=== PATIENT | male | born 1980 | race Two or more races ===

== ENCOUNTER 2017-06-11 03:38 | Emergency (ER) | payer OTHER ==
[~2017-06-11] VITALS: Ht 175.3 cm; Wt 86.2 kg
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
[2017-06-11 04:15] LABS: HEMATOCRIT 45.2 % (39.0-53.0); HEMOGLOBIN 15.2 g/dL (13.0-17.5); MEAN CORPUSCULAR HEMOGLOBIN 33 pg (25-35); MEAN CORPUSCULAR VOLUME 97 fL (79-100); RED BLOOD COUNT 4.65 x10^6/uL (4.30-5.70); WHITE BLOOD COUNT 6.6 x10^3/uL (4.0-11.0)
[2017-06-11] MEDS ORDERED: CONTRAST GIVEN MC PRN (04:15)
[2017-06-11 04:16] LABS: BASO % 0 % (0-3); EOS % 2 % (0-3); LYMPH % 16 % (24-48); MEAN CORPUSCULAR HGB CONC 34 g/dL (31-37); MONO % 6 % (0-9); NEUT % 76 % (31-73); PLATELET COUNT 172 x10^3/uL (140-400); RED CELL DISTRIBUTION WIDTH 12.8 % (11.5-14.5)
[2017-06-11 04:26] LABS: CALCIUM 8.8 mg/dL (8.5-10.1); GFR 84.5; POTASSIUM 4.1 mmol/L (3.5-5.1)
[2017-06-11] MEDS ORDERED: IOHEXOL 300 MG/ML 100ML VIAL. IV ONE (04:30)
[2017-06-11] MEDS ORDERED: IV NORMAL SALINE 1000ML BAG 1,000 ML IV SCH (04:30)
[2017-06-11] MEDS ORDERED: fentaNYL PF VIAL 100 MCG/2 ML VIAL IV ONE (04:30)
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
[2017-06-11 05:08] VITALS: BP 125/74
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
[2017-06-11] MEDS ORDERED: TIZA4CAP3 PO (05:28)
[2017-06-11] MEDS ORDERED: NAPR500T PO (05:28)
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
[2017-06-11 05:48] LABS: BILIRUBIN,URINE NEGATIVE (NEG); GLUCOSE,URINE 500 mg/dL (NEG); NITRITE,URINE NEGATIVE (NEG); PH,URINE 6.5; PROTEIN,URINE NEGATIVE (NEG-TRACE)
[2017-06-11 05:57] LABS: BACTERIA,URINE 0 /HPF (0-FEW); RBC,URINE 0 /HPF (0-2); SQUAMOUS EPITHELIAL CELL,UR FEW /LPF; WBC,URINE 0 /HPF (0-4)
--- NOTE | 2017-06-11 06:30 | RAD ---
This examination was dictated as an addendum to the CT chest, abdomen and pelvis report. Electronically signed by: Ana Montaño MD (06/11/2017 6:27 AM) [place] [id number]
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
== END 2017-06-11 07:06 | disposition home or self-care (01) ==
LOC: ER 03:38
DX: S62.522A Displaced fracture of distal phalanx of left thumb, initial encounter for closed fracture (principal); S22.009A Unspecified fracture of unspecified thoracic vertebra, initial encounter for closed fracture; S33.5XXA Sprain of ligaments of lumbar spine, initial encounter; S30.1XXA Contusion of abdominal wall, initial encounter; S80.812A Abrasion, left lower leg, initial encounter; F29 Unspecified psychosis not due to a substance or known physiological condition; F17.210 Nicotine dependence, cigarettes, uncomplicated; F12.10 Cannabis abuse, uncomplicated; V43.62XA Car passenger injured in collision with other type car in traffic accident, initial encounter; Y93.89 Activity, other specified; Y92.410 Unspecified street and highway as the place of occurrence of the external cause; Y99.8 Other external cause status
CPT/HCPCS: 36415; 70450; 71250; 72125; 73120; 74176; 80048; 81001; 83690; 85025; 86850; 86900; 86901; 99285-25